=== PATIENT | male | born 1955 | race Caucasian/White ===

== ENCOUNTER → 2021-04-30 | Outpatient (CLI) | payer MEDICARE ==
[2021-04-30 18:53] LABS: Basophils # (A) 0.11 X 10*3/uL (0.00-0.10); Basophils % (A) 1.1 %; Eosinophils # (A) 0.45 X 10*3/uL (0.04-0.35); Eosinophils % (A) 4.4 %; HCT 49.9 % (39.6-50.0); HGB 17.5 g/dL (13.0-17.0); Lymphocytes % (A) 29.5 %; MCHC 35.1 g/dL (32.0-37.0); Mean Platelet Volume 10.9 fL (9.5-12.2); Monocytes % (A) 13.8 %; Neutrophils # (A) 5.17 X 10*3/uL (1.80-7.70); Neutrophils % (A) 50.9 %; Platelet Count 477 X 10*3/uL (140-440); RBC 5.31 X 10*6/uL (4.40-5.60); RDW 12.5 % (11.5-14.5); WBC 10.16 X 10*3/uL (4.50-10.00)
== END | disposition home or self-care (01) ==
LOC: LABWHC1 10:41
PROVIDERS: ATTEND Physician Assistant
DX: D72.829 Elevated white blood cell count, unspecified (principal)
CPT/HCPCS: 36415; 85025

== ENCOUNTER → 2022-04-16 | Outpatient (CLI) | payer MEDICARE ==
--- NOTE | 2022-04-16 09:18 | US ---
EXAMINATION TYPE: US abdomen limited DATE OF EXAM: 04/16/2022 COMPARISON: NONE CLINICAL HISTORY: 67-year-old male R74.01 ELEVATED TRANSAMINASE LEVELS. ABNORMAL LABS TECHNIQUE: Multiple sonographic images of the right upper quadrant are obtained. FINDINGS: EXAM MEASUREMENTS: Liver Length: 14.0 cm Gallbladder Wall: not clearly visualized. CBD: .6 cm Right Kidney: 14.1 x 4.7 x 5.6 cm Pancreas: Obscured by bowel gas Liver: Increased echogenicity with far field attenuation. No focal lesion is identified. Gallbladder: Extensive shadowing from the region of the gallbladder. No apparent wall thickening or surrounding fluid. Evidence for sonographic Aguayo's sign: No CBD: Borderline caliber. Right Kidney: Mild prominence to the renal pelvis, likely transient. No calyceal dilatation to sugges t hydronephrosis. IMPRESSION: 1. Moderate to severe hepatic steatosis. Correlate with LFTs, lipid profile, and patient risk factors . 2. Extensive shadowing from the region of the gallbladder. There may be underlying cholelithiasis. No josh wall thickening or surrounding fluid is identified. 3. Bile duct borderline in caliber at 6 mm, acceptable given patient's age.
== END | disposition home or self-care (01) ==
LOC: RADUSWWP 07:00
DX: K76.0 Fatty (change of) liver, not elsewhere classified (principal)
CPT/HCPCS: 76705

== ENCOUNTER → 2024-08-10 | Outpatient (CLI) | payer MEDICARE ==
--- NOTE | 2024-08-10 08:32 | XR ---
EXAMINATION TYPE: XR knee complete bilateral DATE OF EXAM: 08/10/2024 COMPARISON: NONE HISTORY: Pain TECHNIQUE: Three views bilateral knee are submitted. FINDINGS: Right knee: There is a sclerotic lesion of the distal diaphysis likely related to bone infarct or cho ndroid lesion. Moderate to severe medial compartment joint space narrowing with marginal spurring. Mi ld patellofemoral joint arthropathy. Small amount of fluid in the suprapatellar bursa. No erosive daniela nges. Mild generalized demineralization. Left knee: Moderate medial compartment and mild patellofemoral compartment narrowing of the joint spa ce with marginal spurring. No erosive changes. Trace suprapatellar bursal fluid. Mild generalized dem ineralization. IMPRESSION: 1. Moderate to severe osteoarthritis medial compartment of the knee. 2. Moderate medial compartment joint arthropathy left knee. 3. Nonspecific intraosseous sclerotic lesion distal diaphysis right femur most likely related to bone infarct or chondroid lesion. Recommend bone scan. [facility], , 08/10/2024 8:30 AM
== END | disposition home or self-care (01) ==
LOC: RADXRMAIN 08:06
PROVIDERS: ATTEND Pediatrics
DX: M17.0 Bilateral primary osteoarthritis of knee (principal)

== ENCOUNTER → 2024-08-10 | Outpatient (CLI) | payer MEDICARE ==
--- NOTE | 2024-08-11 00:51 | US ---
EXAMINATION TYPE: US thyroid st tissue head/neck DATE OF EXAM: 08/10/2024 COMPARISON: NONE CLINICAL INDICATION: Male, 69 years old with history of R22.9 SOFT TISSUE SWELLING; Left neck swellin g x many years Left neck: 3.2 x 2.1 x 3.1cm hypoechoic mass - ? enlarged lymph node Right neck for comparison: appears wnl IMPRESSION: 1. Palpable region correlates hypoechoic circumscribed. Some internal vascularity may be a large lymp h node. Consider contrast CT soft tissue neck for additional workup. [facility], , 08/11/2024 12:49 AM
== END | disposition home or self-care (01) ==
LOC: RADUSWWP 07:40
PROVIDERS: ATTEND Pediatrics
DX: R22.1 Localized swelling, mass and lump, neck (principal)
CPT/HCPCS: 76536